=== PATIENT | male | born 1950 | race Caucasian/White ===

== ENCOUNTER → 2025-02-18 11:40 | Outpatient (CLI) | payer MEDICARE, BC, OTHER, SELFPAY | PROVIDERS: PCP Podiatrist Foot & Ankle Surgery; Referring Provider Podiatrist Foot & Ankle Surgery; Visit Provider Surgery | DX: G57.83 Other specified mononeuropathies of bilateral lower limbs (principal); M86.671 Other chronic osteomyelitis, right ankle and foot | CPT/HCPCS: 99203; 99212 ==

== ENCOUNTER → 2025-02-26 14:01 | Outpatient (CLI) | payer MEDICARE, BC, OTHER, SELFPAY | PROVIDERS: PCP Podiatrist Foot & Ankle Surgery; Referring Provider Podiatrist Foot & Ankle Surgery; Visit Provider Surgery | DX: G57.83 Other specified mononeuropathies of bilateral lower limbs (principal); M86.671 Other chronic osteomyelitis, right ankle and foot | CPT/HCPCS: 99183; G0277 ==

== ENCOUNTER → 2025-02-27 11:30 | Outpatient (CLI) | payer MEDICARE, BC, OTHER, SELFPAY | PROVIDERS: PCP Podiatrist Foot & Ankle Surgery; Referring Provider Podiatrist Foot & Ankle Surgery; Visit Provider Surgery | DX: G57.83 Other specified mononeuropathies of bilateral lower limbs (principal); M86.671 Other chronic osteomyelitis, right ankle and foot | CPT/HCPCS: 99183; G0277 ==

== ENCOUNTER → 2025-02-28 10:46 | Outpatient (CLI) | payer MEDICARE, BC, OTHER, SELFPAY | PROVIDERS: PCP Podiatrist Foot & Ankle Surgery; Referring Provider Podiatrist Foot & Ankle Surgery; Visit Provider Physician Assistant | DX: G57.83 Other specified mononeuropathies of bilateral lower limbs (principal); M86.671 Other chronic osteomyelitis, right ankle and foot | CPT/HCPCS: 99183; G0277 ==

== ENCOUNTER → 2025-03-04 13:57 | Outpatient (CLI) | payer MEDICARE, BC, OTHER, SELFPAY | PROVIDERS: PCP Podiatrist Foot & Ankle Surgery; Referring Provider Podiatrist Foot & Ankle Surgery; Visit Provider Physician Assistant | DX: G57.83 Other specified mononeuropathies of bilateral lower limbs (principal); M86.671 Other chronic osteomyelitis, right ankle and foot | CPT/HCPCS: 99183; G0277 ==

== ENCOUNTER → 2025-03-05 15:07 | Outpatient (CLI) | payer MEDICARE, BC, OTHER, SELFPAY | PROVIDERS: PCP Podiatrist Foot & Ankle Surgery; Referring Provider Podiatrist Foot & Ankle Surgery; Visit Provider Physician Assistant | DX: G57.83 Other specified mononeuropathies of bilateral lower limbs (principal); M86.671 Other chronic osteomyelitis, right ankle and foot | CPT/HCPCS: 99183; G0277 ==

== ENCOUNTER → 2025-03-06 10:53 | Outpatient (CLI) | payer MEDICARE, BC, OTHER, SELFPAY | PROVIDERS: PCP Podiatrist Foot & Ankle Surgery; Referring Provider Podiatrist Foot & Ankle Surgery; Visit Provider Physician Assistant | DX: G57.83 Other specified mononeuropathies of bilateral lower limbs (principal); M86.671 Other chronic osteomyelitis, right ankle and foot | CPT/HCPCS: 99183; G0277 ==

== ENCOUNTER → 2025-03-07 11:03 | Outpatient (CLI) | payer MEDICARE, BC, OTHER, SELFPAY ==
--- NOTE | 2025-03-07 | OV.WND_ITS ---
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 PRE-TREATMENT VITAL SIGNS WERE: TIME VITALS TAKEN: 10:48, BLOOD PRESSURE: 140/84 MMHG, PULSE: 65 BPM, RESPIRATORY RATE: 14 BREATHS/MIN, TEMPERATURE: 98.9 ?F, PULSE OXIMETRY: 100 %. THE TREATMENT PROTOCOL PROVIDED WAS 2.5 CHRISTIE X 90 MINUTES W/ 100% OXYGEN AND 2-10 MINUTE AIR BREAKS. THE DIVE RATE DOWN WAS 1.5 PSI / MINUTE. THE DIVE RATE UP WAS 1.5 PSI / MINUTE. THE TOTAL TREATMENT LENGTH WAS 140 MINUTES. POST- TREATMENT VITAL SIGNS WERE: TIME VITALS TAKEN: 13:13, BLOOD PRESSURE: 152/86 MMHG, PULSE: 57 BPM, RESPIRATORY RATE: 14 BREATHS/MIN, TEMPERATURE: 98.3 ?F, PULSE OXIMETRY: 100 %. NO ADVERSE EVENTS WERE ENCOUNTERED. PHYSICIAN/CERTIFIED BENCH JEWELER TECHNICIAN NOTES: THE PATIENT TOLERATED TREATMENT WITHOUT DIFFICULTY. I WAS PRESENT AND IMMEDIATELY AVAILABLE THROUGHOUT THE TREATMENT. PLAN TO CONTINUE HYPERBARIC OXYGEN THERAPY. GENERAL NOTES PT ARRIVED IN STABLE CONDITION; PRE-TREATMENT CHECKLIST COMPLETED WITHOUT COMPLICATIONS. PT COMPLETED TREATMENT WITHOUT COMPLAINT, LEFT IN STABLE CONDITION. ADDITIONAL INFORMATION PHYSICIAN WAS READILY AVAILABLE DURING THE ENTIRE TREATMENT.: YES ELECTRONIC SIGNATURE(S) SIGNED BY: BAKARI ANDERSON PA-C DATE: 03/09/2025 22:12:56 (PT) ENTERED BY: BAKARI ANDERSON PA-C ON 03/09/2025 22:12:49 (PT) GHISLAINE RAINEY [id number] 1950
== END ==
PROVIDERS: PCP Podiatrist Foot & Ankle Surgery; Referring Provider Podiatrist Foot & Ankle Surgery; Visit Provider Physician Assistant
DX: G57.83 Other specified mononeuropathies of bilateral lower limbs (principal); M86.671 Other chronic osteomyelitis, right ankle and foot
CPT/HCPCS: 99183; G0277

== ENCOUNTER → 2025-03-10 10:42 | Outpatient (CLI) | payer MEDICARE, BC, OTHER, SELFPAY | PROVIDERS: PCP Podiatrist Foot & Ankle Surgery; Referring Provider Podiatrist Foot & Ankle Surgery; Visit Provider Surgery | DX: G57.83 Other specified mononeuropathies of bilateral lower limbs (principal); M86.671 Other chronic osteomyelitis, right ankle and foot | CPT/HCPCS: 99183; G0277 ==

== ENCOUNTER → 2025-03-11 11:16 | Outpatient (CLI) | payer MEDICARE, BC, OTHER, SELFPAY | PROVIDERS: PCP Podiatrist Foot & Ankle Surgery; Referring Provider Podiatrist Foot & Ankle Surgery; Visit Provider Surgery | DX: G57.83 Other specified mononeuropathies of bilateral lower limbs (principal); M86.671 Other chronic osteomyelitis, right ankle and foot | CPT/HCPCS: 99183; G0277 ==

== ENCOUNTER → 2025-03-12 11:24 | Outpatient (CLI) | payer MEDICARE, BC, OTHER, SELFPAY | PROVIDERS: PCP Podiatrist Foot & Ankle Surgery; Referring Provider Podiatrist Foot & Ankle Surgery; Visit Provider Surgery | DX: G57.83 Other specified mononeuropathies of bilateral lower limbs (principal); M86.671 Other chronic osteomyelitis, right ankle and foot | CPT/HCPCS: 99183; G0277 ==

== ENCOUNTER → 2025-03-13 11:53 | Outpatient (CLI) | payer MEDICARE, BC, OTHER, SELFPAY | PROVIDERS: PCP Podiatrist Foot & Ankle Surgery; Referring Provider Podiatrist Foot & Ankle Surgery; Visit Provider Surgery | DX: G57.83 Other specified mononeuropathies of bilateral lower limbs (principal); M86.671 Other chronic osteomyelitis, right ankle and foot | CPT/HCPCS: 99183; G0277 ==

== ENCOUNTER → 2025-03-14 11:20 | Outpatient (CLI) | payer MEDICARE, BC, OTHER, SELFPAY | PROVIDERS: PCP Podiatrist Foot & Ankle Surgery; Referring Provider Podiatrist Foot & Ankle Surgery; Visit Provider Physician Assistant | DX: G57.83 Other specified mononeuropathies of bilateral lower limbs (principal); M86.671 Other chronic osteomyelitis, right ankle and foot | CPT/HCPCS: 99183; G0277 ==

== ENCOUNTER → 2025-03-17 11:08 | Outpatient (CLI) | payer MEDICARE, BC, OTHER, SELFPAY | PROVIDERS: PCP Podiatrist Foot & Ankle Surgery; Referring Provider Podiatrist Foot & Ankle Surgery; Visit Provider Surgery | DX: G57.83 Other specified mononeuropathies of bilateral lower limbs (principal); M86.671 Other chronic osteomyelitis, right ankle and foot | CPT/HCPCS: 99183; G0277 ==

== ENCOUNTER → 2025-03-18 14:35 | Outpatient (CLI) | payer MEDICARE, BC, OTHER, SELFPAY | PROVIDERS: PCP Podiatrist Foot & Ankle Surgery; Referring Provider Podiatrist Foot & Ankle Surgery; Visit Provider Surgery | DX: G57.83 Other specified mononeuropathies of bilateral lower limbs (principal); M86.671 Other chronic osteomyelitis, right ankle and foot | CPT/HCPCS: 99183; G0277 ==

== ENCOUNTER → 2025-03-19 13:56 | Outpatient (CLI) | payer MEDICARE, BC, OTHER, SELFPAY | PROVIDERS: PCP Podiatrist Foot & Ankle Surgery; Referring Provider Podiatrist Foot & Ankle Surgery; Visit Provider Surgery | DX: G57.83 Other specified mononeuropathies of bilateral lower limbs (principal); M86.671 Other chronic osteomyelitis, right ankle and foot | CPT/HCPCS: 99183; 99211; 99213; G0277 ==

== ENCOUNTER → 2025-03-20 11:25 | Outpatient (CLI) | payer MEDICARE, BC, OTHER, SELFPAY | PROVIDERS: PCP Podiatrist Foot & Ankle Surgery; Referring Provider Podiatrist Foot & Ankle Surgery; Visit Provider Surgery | DX: M86.671 Other chronic osteomyelitis, right ankle and foot (principal); G57.83 Other specified mononeuropathies of bilateral lower limbs | CPT/HCPCS: 99183; G0277 ==

== ENCOUNTER → 2025-03-21 12:06 | Outpatient (CLI) | payer MEDICARE, BC, OTHER, SELFPAY | PROVIDERS: PCP Podiatrist Foot & Ankle Surgery; Referring Provider Podiatrist Foot & Ankle Surgery; Visit Provider Nurse Practitioner Family | DX: G57.83 Other specified mononeuropathies of bilateral lower limbs (principal); M86.671 Other chronic osteomyelitis, right ankle and foot | CPT/HCPCS: 99183; G0277 ==

== ENCOUNTER → 2025-03-24 11:03 | Outpatient (CLI) | payer MEDICARE, BC, OTHER, SELFPAY | PROVIDERS: PCP Podiatrist Foot & Ankle Surgery; Referring Provider Podiatrist Foot & Ankle Surgery; Visit Provider Surgery | DX: G57.83 Other specified mononeuropathies of bilateral lower limbs (principal); M86.671 Other chronic osteomyelitis, right ankle and foot | CPT/HCPCS: 99183; G0277 ==

== ENCOUNTER → 2025-03-25 11:36 | Outpatient (CLI) | payer MEDICARE, BC, OTHER, SELFPAY | PROVIDERS: PCP Podiatrist Foot & Ankle Surgery; Referring Provider Podiatrist Foot & Ankle Surgery; Visit Provider Surgery | DX: G57.83 Other specified mononeuropathies of bilateral lower limbs (principal); M86.671 Other chronic osteomyelitis, right ankle and foot | CPT/HCPCS: 99183; G0277 ==

== ENCOUNTER → 2025-03-26 11:15 | Outpatient (CLI) | payer MEDICARE, BC, OTHER, SELFPAY | LOC: WC 11:16 | PROVIDERS: PCP Podiatrist Foot & Ankle Surgery; Referring Provider Podiatrist Foot & Ankle Surgery; Visit Provider Surgery | DX: G57.83 Other specified mononeuropathies of bilateral lower limbs (principal); M86.671 Other chronic osteomyelitis, right ankle and foot | CPT/HCPCS: 99183; G0277 ==

== ENCOUNTER → 2025-03-27 11:33 | Outpatient (CLI) | payer MEDICARE, BC, OTHER, SELFPAY | LOC: WC 11:34 | PROVIDERS: PCP Podiatrist Foot & Ankle Surgery; Referring Provider Podiatrist Foot & Ankle Surgery; Visit Provider Surgery | DX: G57.83 Other specified mononeuropathies of bilateral lower limbs (principal); M86.671 Other chronic osteomyelitis, right ankle and foot | CPT/HCPCS: 99183; G0277 ==

== ENCOUNTER → 2025-03-28 11:15 | Outpatient (CLI) | payer MEDICARE, BC, OTHER, SELFPAY | LOC: WC 11:17 | PROVIDERS: PCP Podiatrist Foot & Ankle Surgery; Referring Provider Podiatrist Foot & Ankle Surgery; Visit Provider Physician Assistant | DX: G57.83 Other specified mononeuropathies of bilateral lower limbs (principal); M86.671 Other chronic osteomyelitis, right ankle and foot | CPT/HCPCS: 99183; G0277 ==

== ENCOUNTER → 2025-03-31 13:26 | Outpatient (CLI) | payer MEDICARE, BC, OTHER, SELFPAY | LOC: WC 13:28 | PROVIDERS: PCP Podiatrist Foot & Ankle Surgery; Referring Provider Podiatrist Foot & Ankle Surgery; Visit Provider Surgery | DX: G57.83 Other specified mononeuropathies of bilateral lower limbs (principal); M86.671 Other chronic osteomyelitis, right ankle and foot | CPT/HCPCS: 99183; G0277 ==

== ENCOUNTER → 2025-04-01 12:36 | Outpatient (CLI) | payer MEDICARE, BC, OTHER, SELFPAY | LOC: WC 12:38 | PROVIDERS: PCP Podiatrist Foot & Ankle Surgery; Referring Provider Podiatrist Foot & Ankle Surgery; Visit Provider Surgery | DX: G57.83 Other specified mononeuropathies of bilateral lower limbs (principal); M86.671 Other chronic osteomyelitis, right ankle and foot | CPT/HCPCS: 99183; G0277 ==

== ENCOUNTER → 2025-04-02 11:40 | Outpatient (CLI) | payer MEDICARE, BC, OTHER, SELFPAY | LOC: WC 11:43 | PROVIDERS: PCP Podiatrist Foot & Ankle Surgery; Referring Provider Podiatrist Foot & Ankle Surgery; Visit Provider Surgery | DX: G57.83 Other specified mononeuropathies of bilateral lower limbs (principal); M86.671 Other chronic osteomyelitis, right ankle and foot | CPT/HCPCS: 99183; G0277 ==

== ENCOUNTER → 2025-04-03 10:56 | Outpatient (CLI) | payer MEDICARE, BC, OTHER, SELFPAY | LOC: WC 10:58 | PROVIDERS: PCP Podiatrist Foot & Ankle Surgery; Referring Provider Podiatrist Foot & Ankle Surgery; Visit Provider Surgery | DX: G57.83 Other specified mononeuropathies of bilateral lower limbs (principal); M86.671 Other chronic osteomyelitis, right ankle and foot | CPT/HCPCS: 99183; G0277 ==

== ENCOUNTER → 2025-04-04 11:40 | Outpatient (CLI) | payer MEDICARE, BC, OTHER, SELFPAY | LOC: WC 11:42 | PROVIDERS: PCP Podiatrist Foot & Ankle Surgery; Referring Provider Podiatrist Foot & Ankle Surgery; Visit Provider Physician Assistant | DX: G57.83 Other specified mononeuropathies of bilateral lower limbs (principal); M86.671 Other chronic osteomyelitis, right ankle and foot | CPT/HCPCS: 99183; G0277 ==

== ENCOUNTER → 2025-04-07 10:48 | Outpatient (CLI) | payer MEDICARE, BC, OTHER, SELFPAY | LOC: WC 10:49 | PROVIDERS: PCP Podiatrist Foot & Ankle Surgery; Referring Provider Podiatrist Foot & Ankle Surgery; Visit Provider Surgery | DX: G57.83 Other specified mononeuropathies of bilateral lower limbs (principal); M86.671 Other chronic osteomyelitis, right ankle and foot | CPT/HCPCS: 99183; G0277 ==

== ENCOUNTER → 2025-04-08 11:53 | Outpatient (CLI) | payer MEDICARE, BC, OTHER, SELFPAY | LOC: WC 11:59 | PROVIDERS: PCP Podiatrist Foot & Ankle Surgery; Referring Provider Podiatrist Foot & Ankle Surgery; Visit Provider Surgery | DX: G57.83 Other specified mononeuropathies of bilateral lower limbs (principal); M86.671 Other chronic osteomyelitis, right ankle and foot; Z87.891 Personal history of nicotine dependence | CPT/HCPCS: 99183; G0277 ==

== ENCOUNTER → 2025-04-09 13:12 | Outpatient (CLI) | payer MEDICARE, BC, OTHER, SELFPAY | LOC: WC 13:17 | PROVIDERS: PCP Podiatrist Foot & Ankle Surgery; Referring Provider Podiatrist Foot & Ankle Surgery; Visit Provider Surgery | DX: G57.83 Other specified mononeuropathies of bilateral lower limbs (principal); M86.671 Other chronic osteomyelitis, right ankle and foot | CPT/HCPCS: 99183; G0277 ==